=== PATIENT | male | born 1985 | race African-American/Black ===

== ENCOUNTER 2017-10-08 02:36 | Inpatient (IN) | payer MEDICARE, OTHER ==
[~2017-10-08] VITALS: Ht 162.6 cm; Wt 85.3 kg
--- NOTE | 2017-10-08 02:39 | ED.ADGEN ---
Past History Past Medical History: Anxiety, Bipolar, Diabetes, Schizophrenia, Other Past Surgical History: Other Smoking: Cigarettes Alcohol Use: Occasionally Drug Use: Amphetamine, Cocaine, Marijuana Adult General Chief Complaint Chief Complaint ".. [facility] nothing wrong with my foot.. but my little toe is swollen and it hurts to walk...".. " They put me on amoxicillin.. but my foot hurts worse..." HPI HPI Patient is a 31 year old male who presents with above hx and complaints Rt. foot pain, pain appears to be localized to Rt. little toe and lateral side of foot. Pt. does have bilateral decrease sensation to his feet. Pt. states his tetanus is up today. Pt. has hx of Dm and is on Metformin. Pt. has had extensive cellulitis in Rt. leg, which required surgery. Pt. has extensive scar along Rt. anterior griffith. Pt. has hx of bipolar and schizoaffective disorder. Pt. does smoke. Had bilateral decreased pulses dorsal and posterior, but both equal to each other. Review of Systems Review of Systems Constitutional: Denies fever or chills [] Eyes: Denies change in visual acuity, redness, or eye pain [] HENT: Denies nasal congestion or sore throat [] Respiratory: Denies cough or shortness of breath [] Cardiovascular: No additional information not addressed in HPI [] GI: Denies abdominal pain, nausea, vomiting, bloody stools or diarrhea [] : Denies dysuria or hematuria [] Musculoskeletal: Denies back pain or joint pain []Rt. foot pain Integument: Denies rash or skin lesions [] Neurologic: Denies headache, focal weakness or sensory changes [] Endocrine: Hx of polyuria or polydipsia [] All other systems were reviewed and found to be within normal limits, except as documented in this note. Family History Family History DM Current Medications Current Medications Current Medications Medications (Trade) Dose Ordered Sig/Marguerite Start Time Stop Time Status Last Admin Dose Admin Aspirin (Children'S Aspirin) 324 mg 1X ONCE 10/08/17 03:30 10/08/17 04:16 DC 10/08/17 04:14 324 MG Ceftriaxone Sodium (Rocephin Im) 1 gm 1X ONCE 10/08/17 03:30 10/08/17 04:16 DC 10/08/17 04:14 1 GM Ketorolac Tromethamine (Toradol) 30 mg 1X ONCE 10/08/17 03:30 10/08/17 04:16 DC 10/08/17 04:14 30 MG Sodium Chloride 1,000 ml @ 1,000 mls/hr 1X ONCE 10/08/17 03:30 10/08/17 04:29 DC 10/08/17 03:30 1,000 MLS/HR Allergies Allergies Allergies Coded Allergies Type Severity Reaction Last Updated Verified No Known Drug Allergies 10/08/17 No Physical Exam Physical Exam Constitutional: in acute distress, non-toxic appearance. [] HENT: Normocephalic, atraumatic, bilateral external ears normal, oropharynx moist, no oral exudates, nose normal. [] Eyes: PERRLA, EOMI, conjunctiva normal, no discharge. [] Neck: Normal range of motion, no tenderness, supple, no stridor. [] Cardiovascular:Heart rate regular rhythm, no murmur [] Lungs & Thorax: Bilateral breath sounds equal with scattered wheezes on auscultation [] Abdomen: Bowel sounds normal, soft, no tenderness, no masses, no pulsatile masses. [] Skin: Warm, dry, no erythema, no rash. [] Back: No tenderness, no CVA tenderness. [] Extremities: No tenderness, no cyanosis, no clubbing, ROM intact, right foot edema. [] Except Rt. foot pain as per HPI. Rt. Tib. scar. Neurologic: Alert and oriented X 3, normal motor function, normal sensory function, no focal deficits noted. [] Psychologic: Affect anxious, judgement normal, mood normal. [] Current Patient Data Vital Signs Vital Signs Date Time Temp Pulse Resp B/P (MAP) Pulse Ox O2 Delivery O2 Flow Rate FiO2 10/08/17 02:40 97.9 106 22 97 Room Air Lab Results Laboratory Tests Test 10/08/17 03:16 Glucose (Fingerstick) 265 mg/dL (70-99) H EKG EKG [] Radiology/Procedures Radiology/Procedures My interpretation of Rt. foot films shows[]5th toe edema. No free air. DJD. No fx. or dislocation Course & Med Decision Making Course & Med Decision Making Pertinent Labs and Imaging studies reviewed. (See chart for details) Discussed presentation, testing and tx. plan with Dr. Champion. [] Final Impression Final Impression 1. Diabetic- Hypergylcemia 2. Cellulitis Rt 5th toe and Lateral side of foot 3. HTN 4. Schizoaffective Disorder 5. Bipolar 6. Tobacco Use 7. Hx. Polysubstance Abuse [] Dragon Disclaimer Dragon Disclaimer This electronic medical record was generated, in whole or in part, using a voice recognition dictation system. JAXON ARREGUIN MD Oct 08, 2017 02:39
[2017-10-08] MEDS ORDERED: ASPIRIN 81 MG TAB.CHEW PO ONE (03:30)
[2017-10-08] MEDS ORDERED: cefTRIAXone IM 1 GM VIAL IM ONE (03:30)
[2017-10-08] MEDS ORDERED: IV NORMAL SALINE 1,000ML 1,000 ML IV ONE (03:30)
[2017-10-08] MEDS ORDERED: KETOROLAC 30 MG/ML VIAL. IV ONE (03:30)
[2017-10-08] MEDS ORDERED: cefTRIAXone SODIUM 1 GM VIAL IV ONE (04:06)
[2017-10-08 04:22] LABS: BASO % 1 % (0-3); EOS # 0.2 x10^3/uL (0.0-0.7); EOS % 2 % (0-3); HEMATOCRIT 44.2 % (39.0-53.0); HEMOGLOBIN 14.7 g/dL (13.0-17.5); LYMPH # 2.5 x10^3/uL (1.0-4.8); LYMPH % 28 % (24-48); MEAN CORPUSCULAR HEMOGLOBIN 30 pg (25-35); MEAN CORPUSCULAR HGB CONC 33 g/dL (31-37); MEAN CORPUSCULAR VOLUME 90 fL (79-100); MONO # 0.6 x10^3/uL (0.0-1.1); MONO % 7 % (0-9); NEUT # 5.6 x10^3uL (1.8-7.7); NEUT % 63 % (31-73); PLATELET COUNT 264 x10^3/uL (140-400); RED BLOOD COUNT 4.94 x10^6/uL (4.30-5.70); RED CELL DISTRIBUTION WIDTH 15.4 % (11.5-14.5); WHITE BLOOD COUNT 8.9 x10^3/uL (4.0-11.0)
[2017-10-08 04:31] LABS: VAL ACID < 3 mcg/mL (50-100)
[2017-10-08 04:33] LABS: ALBUMIN 3.5 g/dL (3.4-5.0); CREATININE 0.9 mg/dL (0.7-1.3); DIRECT BILIRUBIN 0.1 mg/dL (0.0-0.2); GFR 117.6; MAGNESIUM 1.7 mg/dL (1.8-2.4); POTASSIUM 3.2 mmol/L (3.5-5.1); TOTAL BILIRUBIN 0.5 mg/dL (0.2-1.0); TOTAL PROTEIN 7.4 g/dL (6.4-8.2)
[2017-10-08] MEDS ORDERED: MAGNESIUM SULFATE 2GM 50 ML IV ONE (05:45)
[2017-10-08 07:12] VITALS: BP 137/61
[2017-10-08] MEDS ORDERED: METF10003 PO (07:33)
[2017-10-08] MEDS ORDERED: DIVA500T2 PO (07:33)
[2017-10-08] MEDS ORDERED: POTA20TA4 PO (07:33)
[2017-10-08] MEDS ORDERED: DEXTROSE 50% 25 GM / 50ML DISP.SYRIN. IV PRN (07:45)
[2017-10-08] MEDS: metFORMIN 500 MG TABLET PO SCH ×2 (08:23→17:11)
[2017-10-08] MEDS: ASPIRIN 81 MG TAB.CHEW PO SCH (08:24)
[2017-10-08] MEDS: INSULIN LISPRO 300 UNITS/3 ML INSULN.PEN. SQ SCH ×3 (08:42→17:00)
--- NOTE | 2017-10-08 10:20 | RAD ---
Three-view right foot radiographs 10/08/2017 CLINICAL HISTORY: Right fifth toe pain. AP, lateral and oblique digital radiographs of the right foot were obtained. No fracture or dislocation of the right foot is seen. Very mild degenerative changes are seen involving the first MTP joint. IMPRESSION: No acute osseous abnormality is seen. Electronically signed by: Alejandro Milner MD (10/08/2017 10:16 AM) [facility]
[2017-10-08 11:17] VITALS: BP 136/79
--- NOTE | 2017-10-08 13:17 | HP ---
ADMIT DATE: 10/08/2017 HISTORY OF PRESENT ILLNESS: The patient is a 31-year-old -British male patient who came to the Emergency Room complaining of pain and swelling of his right little toe and it hurts to walk. Apparently, he was started on amoxicillin, but he continued to have pain, swelling and therefore he came to the Emergency Room at [facility]. When he was there, he was noted to have a swelling and pain mostly confined to the right little toe in lateral side of the foot. He apparently has had extensive cellulitis of his right leg, which required surgery with extensive scars over the right anterior griffith. Denies history of bipolar and schizoaffective disorder. Continued to smoke and had bilateral decreased pulse . He was extensively investigated and admitted with cellulitis of the right foot and was continued on IV antibiotic in the form of Rocephin as well as Flagyl. PAST MEDICAL HISTORY: Significant for type 2 diabetes, has also hypertension, history of schizoaffective disorder, previous history of cellulitis of right lower extremity that required extensive surgery at [facility], polysubstance abuse. He used methamphetamine only about a week ago and he continued to smoke about half a pack a day. FAMILY HISTORY: He has 2 sisters, one older and 1 younger. However, he is adopted and does not know his biological parents. SOCIAL HISTORY: He is x 2, has no children. He smokes half a pack a day, does not drink alcohol. He has been abusing methamphetamine, the last time he used was about a week ago. 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 ALLERGIES: He has no known drug allergies. MEDICATIONS: He is currently on following medications: He is on divalproex 2000 mg daily, potassium chloride 40 mEq daily, and metformin 1000 mg daily. REVIEW OF SYSTEMS: The patient has had denied actually any blurring of vision, cataract, glaucoma or macular degeneration. Denied any earache, tinnitus, or sensorineural deafness. Denied any nosebleeds, stuffy nose, or postnasal drip. Denied any sore throat, sore tongue, toothache, hoarseness of voice, or difficulty swallowing. He denied any nausea, vomiting, diarrhea, or constipation. Denied any hematemesis, melena, or hematochezia. Denied any dysuria, frequency, or hematuria. Denied any chest pain, shortness of breath, orthopnea, paroxysmal nocturnal dyspnea. Denied any cough, phlegm, or hemoptysis. PHYSICAL EXAMINATION: GENERAL: On arrival to the Emergency Room, he looked well and was clearly in no apparent respiratory distress. No pallor, jaundice, cyanosis, or thyromegaly. No jugular venous distension. No limb edema. VITAL SIGNS: His heart rate was 106, blood pressure 112/74, temperature was 97, respiratory rate was 16, and oxygen saturation was 98% on room air. HEAD, EYES, EARS, NOSE, AND THROAT: Showed normocephalic, atraumatic. NECK: Supple. HEART: Showed normal first and second heart sounds with no gallop, rub, or murmur. CHEST: Clear to auscultation. No crepitation or rhonchi. ABDOMEN: Distended, soft, nontender. No guarding or rigidity. No organomegaly. All hernial orifices intact. Bowel sounds normal. NEUROLOGIC: He was awake, alert, responding appropriately. All cranial nerves intact. He moves upper extremities without difficulty, has right-sided foot drop. He has scars in the right leg for his previous severe cellulitis. He has right-sided foot drop and there is redness and swelling on his right foot and the right fifth toe. LABORATORY DATA: His lab works on arrival to the Emergency Room showed a white cell count of 8900, hemoglobin 14.7, hematocrit 44, MCV 90, and platelet count 264,000. His chemistry showed a serum sodium 138, potassium 3.2, chloride 100, bicarbonate 27, anion gap of 11, BUN 4, creatinine 0.9, estimated GFR was 117 mL per minute. Her glucose was 157, calcium was 9, magnesium was 1.7. Total bilirubin, AST, ALT, alkaline phosphatase were normal. His CK was 782. His total protein was 7.4 and albumin was 3.5. His troponin was less than 0.017. His TSH was 0.617. His prothrombin time was 10.4, INR of 1, aPTT was 25. D-dimer was 0.29 and toxic screen was unremarkable. His x-ray of the right foot showed that there is no fracture or dislocation of the right foot seen. Very mild degenerative changes seen involving the first metatarsophalangeal joint. IMPRESSION AND PLAN: In summary, this is a 31-year-old -British male patient, a disabled , who came in with infected right fifth toe and also outer aspect of the right foot, for which he was started on ceftriaxone and Flagyl. We will continue with that. We will continue to monitor his blood sugar and start him also on insulin sliding scale before meals and follow his labs closely. JUDITH BARCENAS MD DR: STEVO/bay JOB#: [id number] / [id number]
[2017-10-08] MEDS ORDERED: HYDROcodone/APAP 5/325MG 1 TAB TABLET PO PRN (14:00)
[2017-10-08] MEDS ORDERED: ACETAMINOPHEN 650 MG/20.3 ML SOLUTION. PO PRN (14:00)
[2017-10-08 15:21] VITALS: BP 146/89
[2017-10-08] MEDS: POTASSIUM CHLORIDE 20 MEQ TABLET.ER. PO SCH ×2 (15:37→21:20)
[2017-10-08 20:07] VITALS: BP 141/88
[2017-10-08] MEDS: CLOTRIMAZOLE 1% TOPICAL CREAM 30GM TUBE. TP SCH (21:19)
[2017-10-08 23:00] VITALS: BP 131/79
[2017-10-09 01:19] LABS: BARBITURATES NEG (NEG); BENZODIAZEPINES NEG (NEG); CANNABINOIDS NEG (NEG); COCAINE NEG (NEG); METHADONE NEG (NEG); OPIATES NEG (NEG); PHENCYCLIDINE NEG (NEG)
[2017-10-09 01:40] LABS: AMPHETAMINE/METHAMPHETAMINE POS (NEG)
[2017-10-09 01:46] LABS: BILIRUBIN,URINE NEG (NEG); CLARITY,URINE CLEAR; COLOR,URINE YELLOW; GLUCOSE,URINE >=1000 mg/dL (NEG)
[2017-10-09 01:47] LABS: BACTERIA,URINE 0 /HPF (0-FEW); NITRITE,URINE NEG (NEG); RBC,URINE 0 /HPF (0-2); UROBILINOGEN,URINE 0.2 mg/dL (0.2 mg/dL); WBC,URINE RARE /HPF (0-4)
[2017-10-09 03:00] VITALS: BP 124/67
[2017-10-09] MEDS: cefTRIAXone IV Push 1 GM VIAL. IVP SCH (05:48)
[2017-10-09 08:25] LABS: HEMATOCRIT 40.2 % (39.0-53.0); RED BLOOD COUNT 4.46 x10^6/uL (4.30-5.70); RED CELL DISTRIBUTION WIDTH 15.7 % (11.5-14.5); WHITE BLOOD COUNT 6.1 x10^3/uL (4.0-11.0)
[2017-10-09 08:38] LABS: ALBUMIN 2.7 g/dL (3.4-5.0); ALBUMIN/GLOBULIN RATIO 0.8 (1.0-1.7); CALCIUM 8.7 mg/dL (8.5-10.1); CREATININE 0.8 mg/dL (0.7-1.3); GFR 134.7; POTASSIUM 3.6 mmol/L (3.5-5.1); TOTAL BILIRUBIN 0.2 mg/dL (0.2-1.0)
[2017-10-09] MEDS: metFORMIN 500 MG TABLET PO SCH ×2 (08:49→16:59)
[2017-10-09] MEDS: POTASSIUM CHLORIDE 20 MEQ TABLET.ER. PO SCH ×3 (08:50→20:50)
[2017-10-09] MEDS: ASPIRIN 81 MG TAB.CHEW PO SCH (08:50)
[2017-10-09] MEDS: INSULIN LISPRO 300 UNITS/3 ML INSULN.PEN. SQ SCH ×3 (08:56→17:00)
[2017-10-09] MEDS: CLOTRIMAZOLE 1% TOPICAL CREAM 30GM TUBE. TP SCH ×2 (09:00→20:51)
[2017-10-09 10:36] VITALS: BP 142/97
[2017-10-09] MEDS: metroNIDAZOLE 500 MG TABLET PO SCH ×2 (14:25→20:50)
[2017-10-09 15:06] VITALS: BP 142/90
--- NOTE | 2017-10-09 16:47 | RAD ---
3 phase bone scan 10/09/2017 CLINICAL HISTORY: Right fifth toe cellulitis. TECHNIQUE: After the intravenous administration of 26.3 mCi of technetium 99m MDP, flow and immediate blood pool images of both feet and ankles were obtained. Delayed images of both feet were obtained at 7 hours using the gamma camera. FINDINGS: Comparison is made to radiographs of the right foot dated 10/08/2017. Increased flow and blood pool to the right fifth toe is seen. Faint increased activity is seen involving the distal phalanx of the right fifth toe on the delayed images. These findings are concerning for osteomyelitis. Clinical correlation is recommended. IMPRESSION: +3 phase bone scan with increased activity seen in the region of the distal phalanx of the fifth toe concerning for osteomyelitis. Clinical correlation is recommended. Electronically signed by: Alejandro Milner MD (10/09/2017 4:43 PM) [facility]
[2017-10-09 19:32] VITALS: BP 147/105
[2017-10-09] MEDS: LACTOBACILLUS RHAMNOSUS GG 1 CAPSULE. PO SCH (20:50)
[2017-10-09 22:32] VITALS: BP 157/103
--- NOTE | 2017-10-10 01:08 | PN ---
DATE: 10/09/2017 SUBJECTIVE: The patient is resting, slightly propped up in bed, in no apparent respiratory distress, sleepy, but arousable. On questioning him, he denied any complaint. Nursing staff did not voice any concern. Stated that he had an uneventful night. PHYSICAL EXAMINATION: GENERAL: I examined him, he looked well and was clearly in no apparent respiratory distress. VITAL SIGNS: His heart rate was 72, blood pressure was 142/97, temperature was 98.1, respiratory rate 20, and oxygen saturation was 97% on room air. Rest of clinical examination is unremarkable. The patient has had his bone scan, but results still pending at the time of this dictation. LABORATORY DATA: His lab work this morning showed a white cell count of 6000, hemoglobin 13, hematocrit 40, MCV 90 and platelet count of 189,000. His sedimentation rate was only 5 mm per hour. His serum sodium was 140, potassium 3.6, chloride 106, bicarbonate 26, anion gap of 8, BUN 5, creatinine 0.8. Estimated GFR was 135 mL per minute. Glucose was 256, calcium was 8.7. Total bilirubin, AST, ALT, alkaline phosphatase were normal. C-reactive protein was 11 mg/dL. Total protein 6, albumin was 2.7. TSH was 0.6217. ASSESSMENT: Right fifth toe cellulitis, questionable osteomyelitis, type 2 diabetes, hypertension, schizoaffective disorder, amphetamine abuse and nicotine dependence. The plan is to continue with current antibiotic. We will await the result of the bone scan. There is no evidence of any cellulitis. We will discharge him home on oral antibiotics. JUDITH BARCENAS MD DR: STEVO/bay JOB#: [id number] / [id number]
[2017-10-10 06:02] VITALS: BP 164/100
[2017-10-10] MEDS: metroNIDAZOLE 500 MG TABLET PO SCH (06:20)
[2017-10-10] MEDS: cefTRIAXone IV Push 1 GM VIAL. IVP SCH (06:21)
[2017-10-10] MEDS: LACTOBACILLUS RHAMNOSUS GG 1 CAPSULE. PO SCH (08:12)
[2017-10-10] MEDS: metFORMIN 500 MG TABLET PO SCH (08:12)
[2017-10-10] MEDS: POTASSIUM CHLORIDE 20 MEQ TABLET.ER. PO SCH (08:12)
[2017-10-10] MEDS: ASPIRIN 81 MG TAB.CHEW PO SCH (08:12)
[2017-10-10] MEDS: CLOTRIMAZOLE 1% TOPICAL CREAM 30GM TUBE. TP SCH (08:12)
[2017-10-10] MEDS: INSULIN LISPRO 300 UNITS/3 ML INSULN.PEN. SQ SCH ×2 (08:16→13:03)
[2017-10-10] MEDS ORDERED: CEFT1FRO2 IV (10:55)
[2017-10-10] MEDS ORDERED: CLOT12CR2 TP (11:02)
[2017-10-10] MEDS ORDERED: METR250T PO (11:02)
[2017-10-10 11:27] VITALS: BP 125/79
--- NOTE | 2017-10-10 11:33 | DS ---
DATE OF DISCHARGE: 10/10/2017 HOSPITAL COURSE: The patient is a 31-year-old -[place] male patient, who came to the Emergency Room with redness, swelling of his right fifth toe. Clinically, he has extensive cellulitis of his right fifth toe. X-ray showed no evidence of any bony destruction; however, bone scan was consistent with osteomyelitis and his blood cultures remained negative, so a decision was made to discharge him home to continue on IV antibiotic in the form of ceftriaxone on a daily basis for 10 days. He will also continue with Lotrimin cream as well as Flagyl 250 mg 3 times a day for 10 days. We will arrange for him to have an MRI of his right foot as an outpatient and we will follow him as an outpatient in [facility]. The MRI confirmed osteomyelitis. Obviously, we will arrange for him to be seen by the Infectious Disease specialist and/or orthopedic surgeon and amputation might be another option. PHYSICAL EXAMINATION: GENERAL: When I saw him this morning, he looked well and was clearly in no apparent respiratory distress. No pallor, jaundice, cyanosis, or thyromegaly. No jugular venous distension. No limb edema. VITAL SIGNS: His heart rate was 62, blood pressure was 164/100, temperature was 98, respiratory rate 20, and oxygen saturation was 100%. HEAD, EYES, EARS, NOSE AND THROAT: Showed normocephalic, atraumatic. NECK: Supple. HEART: Showed normal first and second sounds. No gallop, rub or murmur. CHEST: Clear to auscultation. No crepitation or rhonchi. ABDOMEN: Distended, soft, nontender. NEUROLOGIC: He was sleepy, but arousable. All cranial nerves intact. He moves extremities without difficulty. He has swelling and redness of his right fifth toe and forefoot is much improved. LABORATORY DATA: Showed that his white cell count is 6100, hemoglobin 13, hematocrit 40, MCV 90 and platelet count of 189,000. His sed rate was only 5 mm per hour. His C-reactive protein was 11 mg/dL. His chemistry showed a serum sodium 140, potassium 3.6, chloride 106, bicarbonate 26, anion gap of 8, BUN 5, creatinine 0.8, estimated GFR was 135 mL per minute. His glucose was 88.7. Calcium was 0.2. AST, ALT, alkaline phosphatase were normal. Total protein 6, albumin was 2.7. DISCHARGE MEDICATIONS: The patient will be discharged home to continue ceftriaxone 1 gram IV daily for 10 days. We will continue on his divalproex sodium 2000 mg daily, metformin 1000 mg daily with breakfast. He will also be discharged on Flagyl as well as Lotrimin cream to apply topically. FINAL DISCHARGE DIAGNOSES: osteomyelitis of the right fifth toe, type 2 diabetes, schizoaffective disorder, type 2 diabetes, polysubstance abuse including methamphetamine as well as cigarette. JUDITH BARCENAS MD DR: STEVO/bay JOB#: [id number] / [id number]
== END 2017-10-10 13:18 | disposition home or self-care (01) | DRG 872 ==
LOC: ER 02:36 → 1 SOUTH 03:30
PROVIDERS: ADMIT Internal Medicine; ATTEND Internal Medicine
DX: A41.9 Sepsis, unspecified organism (principal); M86.172 Other acute osteomyelitis, left ankle and foot; L03.115 Cellulitis of right lower limb; E11.69 Type 2 diabetes mellitus with other specified complication; Z79.4 Long term (current) use of insulin; L03.031 Cellulitis of right toe; Z83.3 Family history of diabetes mellitus; F25.9 Schizoaffective disorder, unspecified; F17.210 Nicotine dependence, cigarettes, uncomplicated; I10 Essential (primary) hypertension; F41.9 Anxiety disorder, unspecified; F15.90 Other stimulant use, unspecified, uncomplicated; F31.9 Bipolar disorder, unspecified
CPT/HCPCS: 36415; 36569; 73630; 78315; 80048; 80053; 80076; 80164; 80178; 80307; 81001; 82553; 82947; 83735; 84443; 84484; 85025; 85027; 85379; 85610; 85651; 85730; 86140; 87040; 87071; 87075; 87186; 96361; 96372; 96374; A9503; J0696; J1815; J1885; J3475; J3490; 99285-25; G0479; J7030

== ENCOUNTER → 2017-10-17 | Outpatient (CLI) | payer SELFPAY ==
[2017-10-10 11:27] VITALS: BP 125/79
[~2017-10-17] MED LIST: CEFT1FRO2 IV; CLOT12CR2 TP; DIVA500T2 PO; METF10003 PO; METR250T PO; POTA20TA4 PO
--- NOTE | 2017-10-17 13:16 | NUR ---
NSG NOTE; OUT PT PICC REMOVAL PT HERE TO ROOM 111 AT 1300 VIA AMB ACCOMP BY SELF HE HAD BEEN A PATIENT HERE AND WAS DX WITH OSTEOMYLITIS IN RIGHT SMALL TOE. OUT PT IV INFUSION WAS ORDERED AND A PICC LINE PLACED. PT NEVER SHOWED UP FOR HIS OUT PT ABX. HE STATED HE DID NOT HAVE A RIDE HERE, COULD NOT AFFORD HIS PORTION OF THE ABX TX BILL, AND [facility]. HE WALKED IN TODAY AND REQUESTED THE PICC BE REMOVED. PICC RUE REMOVED PER PROTOCOL. DISCHARGED HOME AT 1320 VIA AMB
== END | disposition home or self-care (01) ==
LOC: OPINF 12:41
PROVIDERS: ATTEND Internal Medicine
DX: M86.8X7 Other osteomyelitis, ankle and foot (principal)
CPT/HCPCS: 99211